=== PATIENT | male | born 1955 | race Two or more races ===

== ENCOUNTER 2016-10-30 15:01 | Emergency (ER) | payer OTHER ==
--- NOTE | 2016-10-30 16:22 | ERNOTE ---
Medical Problem HPI - Narrative Date of Service: 10/30/16 - General Chief Complaint: Flu Symptoms Time Seen by Provider: 10/30/16 16:21 Source: patient Exam Limitations: no limitations - Immun/Allergies/Home Medications Immunizations: IMMUNIZATION HX Immunizations Up to Date Yes History of Influenza Vaccine No Hx Pneumococcal Vaccination No Allergies/Adverse Reactions: Allergies No Known Allergies Allergy (Unverified 10/13/15 10:35) Home Medications: HOME MEDICATIONS Atorvastatin Calcium 20 mg PO DAILY 10/13/15 [Last Taken Unknown] Metoprolol Succinate [Toprol Xl] 100 mg PO DAILY 10/13/15 [Last Taken Unknown] Oseltamivir Phosphate [Tamiflu] 75 mg PO BID #10 cap 10/30/16 [Last Taken Unknown] - History of Present History Narrative: PT HAD SOME COLD SYMPTOMS OVER THE PAST 2 WEEKS AND WAS FEELING BETTER UNTIL WED. NIGHT WHEN STARTED WITH NEW SYMPTOMS AGAIN WITH SWEATING , H.A., CONGESTION , FATIGUE. HE HAS NOT HAD FLU SHOT THIS YEAR. Timing: getting worse Review of Systems - Review of Systems Constitutional: Present: See HPI, recent illness, diaphoresis, fatigue, malaise EYE: Present: no symptoms reported ENT: Present: nose congestion, nasal drainage Respiratory: Present: cough Cardiology: Present: no symptoms reported Gastrointestinal/Abdominal: Present: diarrhea Genitourinary: Present: no symptoms reported Musculoskeletal: Present: muscle pain - ACHINESS. Skin: Present: no symptoms reported Neurological: Present: headache - MILD Endocrine: Present: no symptoms reported Hematologic/Lymphatic: Present: no symptoms reported Psych: Present: no symptoms reported All Other Systems: All systems neg except as marked - Patient's Past Medical History Patient History - Medical: No pertinent hx Patient History - Cardiac/Respiratory: Coronary Heart Disease, Hypertension, Hyperlipidemia Patient History - Cancer: Other Patient History - Surgical Procedures: Coronary Bypass Surgery, Other Patient History - Other: None - Social History Living Situations: alone Abuse History: No History of abuse Psych History: No pertinent hx Smoking Status: Never smoker Have you smoked in the past 12 months: No Do you dip or chew tobacco: No Patient requests Smoking Cessation Consult: No Initiate information on Smoking Cessation: No Alcohol Use: occasionally Drug Use: none - Immunizations Immunizations Up to Date: Yes Hx Pneumococcal Vaccination: No History of Influenza Vaccine: No Physical Exam - Physical Exam General Appearance: Present: wd/wn, alert, mild distress Eye Exam: Normal inspection: bilateral Ears, Nose, Throat: Present: hearing grossly normal, nasal congestion, pharyngeal erythema. Absent: tonsillar swelling Neck: Present: normal inspection, nontender Respiratory: Present: no respiratory distress, normal breath sounds, no accessory muscle use, chest nontender, lungs clear Cardiovascular/Chest: Present: regular rate, rhythm, no murmur, normal peripheral pulses Neurological Exam: Present: alert, oriented, normal mood/affect, no motor/ sensory deficits Skin Exam: Present: normal color, warm/dry. Absent: skin rash ED Progress - Results and Orders Patient's Lab Results:: I have reviewed the patient's lab results. Results and Orders: INFLU A = POSITIVE, STREP = NEG - Vital Signs Vital Signs: Vital Signs 10/30/16 15:12 Temperature 38.6 C H Pulse Rate 70 Respiratory 24 H Rate Blood Pressure 97/67 O2 Sat by Pulse 93 Oximetry - Progress/Reassessment Chief Complaint: Flu Symptoms Progress:: Unchanged Departure - Departure Clinical Impression: Influenza A Disposition: Home self-care Condition: Fair Additional Instructions: SYMPTOMATIC TREATMENT ALONG WITH TRIAL OF THE TAMIFLU. REST , EXTRA FLUIDS, DIET TOLERATED, TYLENOL FOR FEVER AND ACHES AND PAINS. RECHECK IF WORSE INSTEAD OF GRADUALLY IMPROVING. Prescriptions: Oseltamivir Phosphate [Tamiflu] 75 mg PO BID #10 cap
[2016-10-30] MEDS: ACETAMINOPHEN 500 MG TABLET PO ONE (16:28)
[2016-10-30] MEDS: NORMAL SALINE 1,000 ML IV ONE (16:30)
--- OUTSIDE RECORDS SUMMARY | 2016-10-30 16:37 | XMS REPORT | Continuity of Care Document ---
:1955 Author Organization [facility] ([facility]) [place] [address] Phone [phone] Care Team Providers Name Role Phone Provider, No-Primary Care Primary Care Provider Unavailable Source Comments This disclosure is being made pursuant to the Care Everywhere program, applicable federal and state laws, and may not contain all informaitonavailable regarding this patient.[facility] ([facility]) Active Allergies and Adverse Reactions No Known Allergies Current Medications Prescription Sig. Disp. Refills Start Date End Date Status metoPROLol succinate 100 Take 100 mg by Active mg XL tablet mouth daily. atorvastatin 20 mg tablet Take 20 mg by Active mouth every evening. aspirin 81 mg EC tablet Take 81 mg by Active mouth daily. ACETAMINOPHEN (TYLENOL PO) Take by mouth as Active needed. Active Problems Problem Noted Date Obesity (BMI 30-39.9) 09/27/2013 CAD (coronary artery disease) 09/27/2013 HTN (hypertension) 09/27/2013 Hyperlipidemia 09/27/2013 S/P CABG (coronary artery bypass graft) 09/27/2013 Pituitary adenoma 09/25/2013 Resolved Problems Problem Noted Date Resolved Date Epistaxis 10/04/2013 10/05/2013 Social History Tobacco Use Types Packs/Day Years Used Date Never Smoker Smokeless Tobacco: Never Used Alcohol Use Drinks/Week oz/Week Comments Yes 1 Glasses of wine 4 Cans of beer Last Filed Vital Signs Vital Sign Reading Time Taken Blood Pressure 147/87 01/15/2016 2:36 PM CDT Pulse 68 01/15/2016 2:36 PM CDT Temperature 36.8 C (98.2 F) 01/15/2016 2:36 PM CDT Respiratory Rate 16 01/22/2014 11:19 AM CDT Height 1.854 m (6' 1") 01/15/2016 2:36 PM CDT Weight 134.6 kg (296 lb 11.8 oz) 01/15/2016 2:36 PM CDT Body Mass Index 39.16 01/15/2016 2:36 PM CDT 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 Plan of Care Date Type Specialty Providers Description 01/13/2017 Appointment Radiology Chief Comp: Patient Reported Reason For Visit 01/13/2017 Appointment Neurosurgery Kelechi Dave MD Chief Comp: Patient [address] [place] [address] [phone] (Fax) Health Maintenance Due Date Last Done Comments HCV Screening 1955 Hepatitis B Vaccine (1 of 3 - Primary Series) 1955 Tdap Vaccine 11/14/1967 Lipid Disorder Screening 1974 MMR Vaccine 1974 Td Vaccine 1974 Colonoscopy 2006 Prostate Cancer Screening 2006 Influenza Vaccine: Seasonal (#1) 04/13/2016 Results from Last 3 Months Not on file
[2016-10-30 23:20] VITALS: BP 147/87
== END 2016-10-30 16:50 | disposition home or self-care (01) ==
LOC: ER 15:01
DX: J10.1 Influenza due to other identified influenza virus with other respiratory manifestations (principal)